=== PATIENT | female | born 1955 | race Caucasian/White ===

== ENCOUNTER 2017-03-24 18:52 | Emergency (ER) | payer OTHER ==
[2017-03-24 19:05] VITALS: BP 123/67; PULSE 70; RESP 16; TEMP 98.4; O2SAT 96
[2017-03-24] MEDS ORDERED: ACETAMINOPHEN 500 MG TAB ONE (19:09)
[2017-03-24] MEDS ORDERED: ACETAMINOPHEN 500 MG TAB PO ONE (19:11)
--- NOTE | 2017-03-24 19:15 | EDPHY ---
H & P Time Seen by Provider: 03/24/17 19:02 HPI/ROS: CHIEF COMPLAINT: Wrist injury HISTORY OF PRESENT ILLNESS: 62-year-old female reports she was walking at 5:45 a.m. this morning when she slipped on ice and fell, landing on her outstretched left hand. She noticed discomfort at the wrist initially. Patient was able to take some ibuprofen and went to work. Throughout the day the wrist has become more painful and she has noticed a small amount of swelling. During the fall, she denies any head trauma, loss of consciousness, chest or abdomen trauma. No injuries to her lower extremities. Patient was otherwise well prior to the event. REVIEW OF SYSTEMS: Aside from elements discussed in the HPI, a comprehensive 10-point review of systems was reviewed and is negative. PAST MEDICAL HISTORY: Hypothyroidism. Patient also reports history of osteoporosis. No prior fractures. SOCIAL HISTORY: Nonsmoker. GENERAL APPEARANCE: Pleasant, alert, no respiratory distress. FOCUSED EXAM OF left upper extremity: Full range of motion no deformity no trauma to the shoulder. Full range of motion no deformity no tenderness at the elbow. Left wrist: Soft tissue swelling is present just distal to the distal radius. Tenderness palpation of the distal radius and ulna. No obvious deformities. No snuffbox tenderness. No discomfort with axillary loading at the thumb. No palmar injury. No tenderness across the metacarpals or the fingers. Neurovascular exam: Good capillary refill, normal motor exam, normal neurologic exam. Smoking Status: Never smoked Constitutional: Initial Vital Signs Temperature (C) 36.9 C 03/24/17 19:03 Heart Rate 70 03/24/17 19:03 Respiratory Rate 16 03/24/17 19:03 Blood Pressure 123/67 H 03/24/17 19:03 O2 Sat (%) 96 03/24/17 19:03 O2 Delivery Mode Room Air Allergies/Adverse Reactions: No Known Allergies Allergy (Unverified 03/24/17 19:02) Home Medications: Medication Instructions Recorded Levothyroxine [Synthroid 50 mcg 03/24/17 (*)] Medical Decision Making - Diagnostics Imaging Results: Imaging Impressions Wrist X-Ray 03/24/17 19:05 Impression: Suspect incomplete nondisplaced distal radius fracture. Findings discussed with Emergency Department physician, Mable Posada M.D., on March 24, 2017 at 1924. Imaging: Discussed imaging studies w/ house calls nurse Radiologist, I viewed and interpreted images myself ED Course/Re-evaluation: Potential incomplete fracture visualized on the wrist x-ray. X-rays reviewed with the patient. Patient was discharged with a volar Velcro splint, at her request. We did discuss ortho glass. Patient advises me that she will wear the splint until seen by Orthopedic surgery. Differential Diagnosis: Differential diagnosis for the patient's injury was considered including but not limited to contusion, abrasion, laceration, fracture, open fracture, or dislocation. - Data Points Medications Given: Discontinued Medications Acetaminophen (Tylenol) 1,000 mg PO EDNOW ONE Stop: 03/24/17 19:12 Last Admin: 03/24/17 19:14 Dose: 1,000 mg Departure - Departure Disposition: Home, Routine, Self-Care Clinical Impression: Possible incomplete fracture of radius Wrist injury Qualifiers: Encounter type: initial encounter Laterality: left Qualified Code(s): S69.92XA - Unspecified injury of left wrist, hand and finger(s), initial encounter Condition: Good Instructions: Wrist Fracture in Adults (ED), Suspected Fracture (ED) Additional Instructions: Please follow-up early next week with orthopedic surgeon for re-examination and further x-rays. You been placed in a Velcro splint. However, if this is a fracture, continuous mobilization of the bone and a plaster splint or cast is preferred. Try not to remove the Velcro splint. Mainstay of therapy is rest, ice, immobilization, elevation, and nonsteroidal anti-inflammatories for pain and to decrease swelling. Apply ice for 20-30 minutes every 2-3 hours for the next 48 hours. I recommend Ibuprofen (Motrin, Advil) or Naproxen Sodium (Aleve) for pain and anti-inflammatory effects. You may take either one, but do not take both. Your dose is: Ibuprofen 600 mg every 6-8 hours with food. OR Naproxen Sodium (Aleve) 220 mg every 12 hours. Followup with the orthopedic surgeon as directed. Referrals: Alessia Shelby DO [Primary Care Provider] - As per Instructions Barrett Toro MD [Medical Doctor] - As per Instructions
== END 2017-03-24 20:00 | disposition home or self-care (01) ==
LOC: CED 18:52
DX: S69.92XA Unspecified injury of left wrist, hand and finger(s), initial encounter (principal); W00.9XXA Unspecified fall due to ice and snow, initial encounter; Y99.8 Other external cause status; Y93.01 Activity, walking, marching and hiking
CPT/HCPCS: 73110-PO; L3807; L4350

== ENCOUNTER → 2018-03-22 | Outpatient (CLI) | payer OTHER | LOC: FIMAGING 12:32 | PROVIDERS: ATTEND Family Medicine | DX: Z12.31 Encounter for screening mammogram for malignant neoplasm of breast (principal) ==